=== PATIENT | female | born 1950 | race Caucasian/White ===

== ENCOUNTER 2018-04-24 08:59 | Emergency (ER) | payer MEDICARE, OTHER ==
[2018-04-24 10:40] LABS: ABS Basophils 0 10^3/ul (0-0.2); ABS Eosinophils 0 10^3/ul (0-0.6); ABS Lymphocytes 0.6 10^3/ul (1.0-4.8); ABS Monocytes 0.2 10^3/ul (0-0.8); ABS Neutrophils 5.1 10^3/ul (1.5-7.7); ABS Nucleated RBC 0 10^3/ul; Eosinophil % 0.1 % (0-6); Hematocrit 38 % (35-47); Hemoglobin 12.5 g/dl (12.0-16.0); Lymphocyte % 9.9 % (25-47); Mean Corpuscular HGB Conc 33 g/dl (31-36); Mean Corpuscular Hemoglobin 29 pg (27-31); Mean Corpuscular Volume 87 fL (80-97); Mean Platelet Volume 8.6 um3 (7.4-10.4); Nucleated Red Blood Cells % 0; Platelet Count 124 10^3/ul (150-450); Red Blood Count 4.35 10^6/ul (4.0-5.4); Red Cell Distribution Width 14 % (10.5-15)
[2018-04-24 10:48] LABS: INR 1.09 (0.77-1.02)
[2018-04-24 10:57] LABS: EGFR Non-African American 64.5 (>60)
--- NOTE | 2018-04-24 12:01 | RAD ---
INDICATION: Syncope COMPARISON: None. TECHNIQUE: Single AP portable view of the chest was obtained. FINDINGS: Image quality is compromised due to the relative inferiority of a portable chest x-ray. Surgical clips are seen overlying the left axilla and left chest. The heart and mediastinum exhibit normal size and contour. The lungs are grossly clear. There is no evidence of a large pleural effusion. Visualized bones are normal for the patient's age. IMPRESSION: No radiographic evidence for acute cardiopulmonary abnormality on this portable chest x-ray.
[2018-04-24] MEDS ORDERED: Iohexol 350* (CONTRAST) 500 ML MDV IV ONE (12:27)
[2018-04-24 12:29] LABS: Urine Appearance Cloudy; Urine Blood 1+ (Negative); Urine Color Yellow; Urine Ketones Negative (Negative); Urine Protein Negative (Negative); Urine Specific Gravity 1.005 (1.010-1.030); Urine Urobilinogen Negative (Negative)
--- NOTE | 2018-04-24 13:14 | RAD ---
INDICATION: Syncope in a woman with a history of left-sided breast cancer COMPARISON: Sonographic imaging from right lobe thyroid nodule FNA April 08, 2017 TECHNIQUE: Axial source images were acquired following the administration of 59 mL Omnipaque [address] angiographic technique. Coronal and sagittal reconstructed images were constructed and reviewed. FINDINGS: There there are no filling defects in the pulmonary arteries to indicate acute pulmonary embolic disease. There are no focal infiltrates or effusions. There are no pulmonary parenchymal masses. The heart is normal in size. There is no evidence of pericardial effusion. There is no evidence of aortic aneurysm or dissection. There is no mediastinal, hilar, or axillary lymphadenopathy. At the right lobe of the thyroid there is an ill-defined nodule measuring 1.7 x 2.5 cm. The visualized osseous structures appear normal. Limited views of the upper abdomen show no abnormalities. IMPRESSION: 1. No CT of evidence of pulmonary embolism. 2. Right lobe thyroid nodule that that appears slightly larger than the imaging from the biopsy dated April 08, 2017. This could be verified with nonemergent thyroid ultrasound if clinically warranted.
--- NOTE | 2018-04-24 14:46 | RAD ---
INDICATION: Pain and bruising at the right second toe after a fall COMPARISON: None. TECHNIQUE: 3 views of the right foot were obtained. FINDINGS: There is a nondisplaced fracture at the distal metaphysis of the right second toe proximal phalanx. Otherwise the adequately corticated bones are properly aligned. Joint spaces appear maintained. IMPRESSION: NONDISPLACED FRACTURE INVOLVING THE DISTAL METAPHYSIS OF THE RIGHT SECOND TOE PROXIMAL PHALANX.
[2018-04-24 15:31] VITALS: BP 98/70
--- NOTE | 2018-04-25 00:37 | ED ---
Angela Carbone Emily, scribed for Ruby Degroot MD on 04/24/18 at 0926 . Syncope/Near Syncope - HPI Summary HPI Summary: This patient is a 67 year old F BIBA to [facility] accompanied by with a chief complaint of syncopal episode that occurred just after 0800 today. Pt reports that she was getting out of the shower, became dizzy, and lost consciousness. Pt reports that she fell, and hit her head during the fall. The patient rates the pain 3/10 in severity. Symptoms aggravated by nothing. Symptoms alleviated by nothing. Patient reports diarrhea (beginning 3 days ago) and dizziness (resolved). Patient denies hematochezia, abd pain, neck pain, and headache. The patient denies having similar symptoms previously. - History Of Current Complaint Chief Complaint: EDSyncope Time Seen by Provider: 04/24/18 09:18 Hx Obtained From: Patient Onset/Duration: Sudden Onset, Lasting Minutes, Resolved Timing: Intermittent Episode Lasting - Minutes Context: Unwitnessed, Loss Of Consciousness Activity At Onset: Exertion Associated Head Trauma: Yes Aggravating Factor(s): Nothing Alleviating Factor(s): Nothing Associated Signs And Symptoms: Other - Positive diarrhea (beginning 3 days ago) and dizziness (resolved). Negative hematochezia, abd pain, neck pain and headache - Allergies/Home Medications Allergies/Adverse Reactions: Allergies Allergy/AdvReac Type Severity Reaction Status Date / Time No Known Allergies Allergy Verified 04/24/18 09:05 Home Medications: Home Medications Calcium Polycarbophil TAB* [Fibercon TAB*] 625 mg PO BID 04/24/18 [History Confirmed 04/24/18] Cholecalciferol TAB* [Vitamin D TAB*] 2,000 units PO DAILY 04/24/18 [History Confirmed 04/24/18] PMH/Surg Hx/FS Hx/Imm Hx Previously Healthy: No Cardiovascular History: Reports: Other Cardiovascular Problems/Disorders - Mitral valve prolapse Neurological History: Denies: Hx Seizures - Cancer History Cancer Type, Location and Year: Breast CA 2002 Hx Chemotherapy: Yes Hx Radiation Therapy: Yes - Surgical History Surgery Procedure, Year, and Place: Lumpectomy 2002 Hx Anesthesia Reactions: No Infectious Disease History: No Infectious Disease History: Denies: Traveled Outside the [place] in Last 30 Days - Family History Known Family History: Positive: Diabetes, Other - Pulmonary embolism - mother - Social History Occupation: Employed Full-time Lives: With Family Alcohol Use: None Hx Substance Use: No Substance Use Type: Reports: None Hx Tobacco Use: No Smoking Status (MU): Never Smoked Tobacco Review of Systems Positive: Diarrhea, Other - Negative hematochezia. Negative: Abdominal Pain Positive: Other - Negative neck pain Neurological: Other - Positive dizziness Positive: Syncope. Negative: Headache All Other Systems Reviewed And Are Negative: Yes Physical Exam - Summary Physical Exam Summary: Appearance: Well-appearing, moderate pain distress, well-nourished Skin: Warm, color reflects adequate perfusion, dry, 1 cm bruise on anterior surface of her right second toe. 3 cm bruise on right dorsal forearm in the proximal third of the forearm. Abrasion on right lower lip Head: Normal Head/Face inspection, atraumatic Eyes: Conjunctiva clear, PERRL, EOMI, no nystagmus ENT: dry oral mucosa Neck: Supple, no nodes, no JVD Respiratory: Lungs clear, normal breath sounds, no respiratory distress Cardio: RRR, No murmur, pulses normal, brisk capillary refill Abdomen: Soft, nontender Bowel sounds: Present Musculoskeletal: Strength Intact/ROM intact, no calf tenderness, no edema. Psychological: Normal Neuro: A&O x3, CN II-XII intact, motor function 5/5, sensation intact, cerebellar normal, GCS 15 Triage Information Reviewed: Yes Vital Signs On Initial Exam: Initial Vitals Temp Pulse Resp BP Pulse Ox 97.8 F 66 21 105/57 99 04/24/18 09:04 04/24/18 09:04 04/24/18 09:04 04/24/18 09:04 04/24/18 09:04 Vital Signs Reviewed: Yes - Lashaun Coma Scale Best Eye Response: 4 - Spontaneous Best Motor Response: 6 - Obeys Commands Best Verbal Response: 5 - Oriented Coma Scale Total: 15 Diagnostics - Vital Signs Vital Signs Temp Pulse Resp BP Pulse Ox 04/24/18 09:04 97.8 F 66 21 105/57 99 - Laboratory Lab Results: Lab Results 04/24/18 04/24/18 04/24/18 Range/Units 10:28 10:28 10:28 WBC 6.0 (3.5-10.8) 10^3/ul RBC 4.35 (4.0-5.4) 10^6/ul Hgb 12.5 (12.0-16.0) g/dl Hct 38 (35-47) % MCV 87 (80-97) fL MCH 29 (27-31) pg MCHC 33 (31-36) g/dl RDW 14 (10.5-15) % Plt Count 124 L (150-450) 10^3/ul MPV 8.6 (7.4-10.4) um3 Neut % (Auto) 85.6 H (38-83) % Lymph % (Auto) 9.9 L (25-47) % Jennings % (Auto) 4.1 (0-7) % Eos % (Auto) 0.1 (0-6) % Baso % (Auto) 0.3 (0-2) % Absolute Neuts (auto) 5.1 (1.5-7.7) 10^3/ul Absolute Lymphs (auto) 0.6 L (1.0-4.8) 10^3/ul Absolute Monos (auto) 0.2 (0-0.8) 10^3/ul Absolute Eos (auto) 0 (0-0.6) 10^3/ul Absolute Basos (auto) 0 (0-0.2) 10^3/ul Absolute Nucleated RBC 0 10^3/ul Nucleated RBC % 0 INR (Anticoag Therapy) (0.77-1.02) APTT (26.0-36.3) seconds D-Dimer, Quantitative (Less Than 230) ng/mL Sodium 139 (139-145) mmol/L Potassium 3.6 (3.5-5.0) mmol/L Chloride 108 (101-111) mmol/L Carbon Dioxide 25 (22-32) mmol/L Anion Gap 6 (2-11) mmol/L BUN 13 (6-24) mg/dL Creatinine 0.88 (0.51-0.95) mg/dL Est GFR ( Amer) 82.9 (>60) Est GFR (Non-Af Amer) 64.5 (>60) BUN/Creatinine Ratio 14.8 (8-20) Glucose 98 (70-100) mg/dL Lactic Acid 0.8 (0.5-2.0) mmol/L Calcium 8.3 L (8.6-10.3) mg/dL Magnesium 1.6 L (1.9-2.7) mg/dL Total Bilirubin 0.50 (0.2-1.0) mg/dL AST 20 (13-39) U/L ALT 17 (7-52) U/L Alkaline Phosphatase 55 (34-104) U/L Total Creatine Kinase 166 (10-223) U/L Troponin I 0.00 (<0.04) ng/mL B-Natriuretic Peptide ( - 100) pg/mL Total Protein 6.0 L (6.4-8.9) g/dL Albumin 3.4 (3.2-5.2) g/dL Globulin 2.6 (2-4) g/dL Albumin/Globulin Ratio 1.3 (1-3) TSH 0.27 L (0.34-5.60) mcIU/mL Urine Opiates Screen (None Detect) Ur Barbiturates Screen (None Detect) Ur Phencyclidine Scrn (None Detect) Ur Amphetamines Screen (None Detect) U Benzodiazepines Scrn (None Detect) Urine Cocaine Screen (None Detect) U Cannabinoids Screen (None Detect) Serum Alcohol < 10 (<10) mg/dL 04/24/18 04/24/18 04/24/18 Range/Units 10:28 10:28 11:49 WBC (3.5-10.8) 10^3/ul RBC (4.0-5.4) 10^6/ul Hgb (12.0-16.0) g/dl Hct (35-47) % MCV (80-97) fL MCH (27-31) pg MCHC (31-36) g/dl RDW (10.5-15) % Plt Count (150-450) 10^3/ul MPV (7.4-10.4) um3 Neut % (Auto) (38-83) % Lymph % (Auto) (25-47) % Jennings % (Auto) (0-7) % Eos % (Auto) (0-6) % Baso % (Auto) (0-2) % Absolute Neuts (auto) (1.5-7.7) 10^3/ul Absolute Lymphs (auto) (1.0-4.8) 10^3/ul Absolute Monos (auto) (0-0.8) 10^3/ul Absolute Eos (auto) (0-0.6) 10^3/ul Absolute Basos (auto) (0-0.2) 10^3/ul Absolute Nucleated RBC 10^3/ul Nucleated RBC % INR (Anticoag Therapy) 1.09 H (0.77-1.02) APTT 26.0 (26.0-36.3) seconds D-Dimer, Quantitative 415 H (Less Than 230) ng/mL Sodium (139-145) mmol/L Potassium (3.5-5.0) mmol/L Chloride (101-111) mmol/L Carbon Dioxide (22-32) mmol/L Anion Gap (2-11) mmol/L BUN (6-24) mg/dL Creatinine (0.51-0.95) mg/dL Est GFR ( Amer) (>60) Est GFR (Non-Af Amer) (>60) BUN/Creatinine Ratio (8-20) Glucose (70-100) mg/dL Lactic Acid (0.5-2.0) mmol/L Calcium (8.6-10.3) mg/dL Magnesium (1.9-2.7) mg/dL Total Bilirubin (0.2-1.0) mg/dL AST (13-39) U/L ALT (7-52) U/L Alkaline Phosphatase (34-104) U/L Total Creatine Kinase (10-223) U/L Troponin I (<0.04) ng/mL B-Natriuretic Peptide 66 ( - 100) pg/mL Total Protein (6.4-8.9) g/dL Albumin (3.2-5.2) g/dL Globulin (2-4) g/dL Albumin/Globulin Ratio (1-3) TSH (0.34-5.60) mcIU/mL Urine Opiates Screen None detected (None Detect) Ur Barbiturates Screen None detected (None Detect) Ur Phencyclidine Scrn None detected (None Detect) Ur Amphetamines Screen None detected (None Detect) U Benzodiazepines Scrn None detected (None Detect) Urine Cocaine Screen None detected (None Detect) U Cannabinoids Screen None detected (None Detect) Serum Alcohol (<10) mg/dL Result Diagrams: 04/24/18 10:28 04/24/18 10:28 Lab Statement: Any lab studies that have been ordered have been reviewed, and results considered in the medical decision making process. - Radiology CXR Radiology Interpretation Completed By: Radiologist - CXR reveals, per radiologist, no radiographic evidence for acute cardiopulmonary abnormality on this portable chest x-ray. ED physician has reviewed this radiology report. Foot XR Radiology Interpretation Completed By: Radiologist - Foot XR reveals, per radiologist, NONDISPLACED FRACTURE INVOLVING THE DISTAL METAPHYSIS OF THE RIGHT SECOND TOE PROXIMAL PHALANX. ED physician has reviewed this radiology report. - CT CTA Chest CT Interpretation Completed By: Radiologist - CTA chest reveals, per radiologist , 1. No CT of evidence of pulmonary embolism. 2. Right lobe thyroid nodule that that appears slightly larger than the imaging from the biopsy dated March. This could be verified with nonemergent thyroid ultrasound if clinically warranted. ED physician has reviewed this radiology report. - EKG 1031 Cardiac Rate: NL EKG Rhythm: Sinus Rhythm - 62 BPM EKG Interpretation: Nml AV IVCT. Nml QTc. Left axis - 18. No acute changes Re-Evaluation - Re-Evaluation First Eval Re-Evaluation Time: 12:25 Change: Unchanged Comment: elevated d dimer, pt with hx CA and fam hx PE with syncope, will order CTA chest Second Eval Re-Evaluation Time: 13:06 Change: Unchanged Comment: Discussed results and plan of care with the patient Third Eval Re-Evaluation Time: 14:33 Change: Improved Comment: Pt reports that her symptoms are much improved. The patient declines pain medication and crutches Course/Dx Course Of Treatment: This patient is a 67 year old F BIBA to [facility] accompanied by with a chief complaint of syncopal episode that occurred just after 0800 today. CXR reveals, per radiologist, no radiographic evidence for acute cardiopulmonary abnormality on this portable chest x-ray. CTA chest reveals, per radiologist, 1. No CT of evidence of pulmonary embolism. 2. Right lobe thyroid nodule that that appears slightly larger than the imaging from the biopsy dated April 08, 2017. This could be verified with nonemergent thyroid ultrasound if clinically warranted. Foot XR reveals, per radiologist, NONDISPLACED FRACTURE INVOLVING THE DISTAL METAPHYSIS OF THE RIGHT SECOND TOE PROXIMAL PHALANX. Bloodwork and UA obtained. The patient will be discharged home with follow up from PCP. The patient is agreeable with this plan. - Diagnoses Provider Diagnoses: Syncope, Right thyroid nodule, Elevated d-dimer, Fracture of second toe, right , closed Discharge - Sign-Out/Discharge Documenting (check all that apply): Discharge/Admit/Transfer - Discharge - Discharge Plan Condition: Stable Disposition: HOME Patient Education Materials: Toe Fracture (ED), Syncope (ED), Thyroid Nodules ( ED) Referrals: Jessica DIAZ,Jonah Diaz [Primary Care Provider] - 2 Days Jimy Porras MD [Medical Doctor] - 7 Days (orthopedist ) Additional Instructions: Dr. Degroot believes you passed out (had syncope) due to dehydration after your diarrhea. You had orthostatic hypotension and were rehydrated with IV fluids and are improved in the ER. You had a CTA based on risk factors for a pulmonary embolus, and it did not show a pulmonary embolus, but it did show the thyroid nodule that you are having biopsied. Your toe xray showed a nondisplaced fracture of your second toe. You may wear the boot that you used for your stress fracture. You may handy tape the toe for comfort. Return to the ER if you have new or worsening symptoms. The documentation as recorded by the Angela moore Emily accurately reflects the service I personally performed and the decisions made by , Ruby Degroot MD.
== END 2018-04-24 15:28 | disposition home or self-care (01) ==
LOC: ED 08:59
DX: R55 Syncope and collapse (principal); E04.1 Nontoxic single thyroid nodule; R79.1 Abnormal coagulation profile; S92.511A Displaced fracture of proximal phalanx of right lesser toe(s), initial encounter for closed fracture; W19.XXXA Unspecified fall, initial encounter; Y92.9 Unspecified place or not applicable; Z85.9 Personal history of malignant neoplasm, unspecified; Z83.2 Family history of diseases of the blood and blood-forming organs and certain disorders involving the immune mechanism
CPT/HCPCS: 36415; 71045; 71275; 80053; 80307; 80320; 81003; 81015; 82550; 83605; 83735; 83880; 84443; 84484; 85025; 85379; 85610; 85730; 87086; 93005; 99283; G0480; Q9967

== ENCOUNTER → 2019-05-05 05:41 | Day surgery (SDC) | payer MEDICARE, BC ==
[~2019-05-05 05:41] MED LIST: Atropine 1MG/ML INJ* 1 ML VIAL ONE; Buffered Lidocaine 1% SYRIN* 1 ML/SYRINGE INTRADERM ONE; Bupivacaine 0.5% W/EPI SDV* 30 ML VIAL ONE; Dexamethasone IV* 4 MG/ML 1 ML (4 MG) IV SLOW PU ONE; Dexamethasone IV* 4 MG/ML 1 ML (4 MG) ONE; DiMENhydriNATE IV* 50 MG/ML VIAL IV PUSH PRN; EPHEDrine (Pressors)* 50 MG/ML VIAL ONE; Famotidine IV* 10 MG/ML 2 ML (20 mg) IV ONE; Famotidine IV* 10 MG/ML 2 ML (20 mg) ONE; Glycopyrrolate IV* 0.2 MG/ML 1 ML VIAL ONE; HYDROcodone/ACETAMIN 5-325 MG* 1 TAB PO PRN; Ketorolac INJ* 30 MG/ML 1 ML VIAL ONE; Lactated Ringers 1000 ML Bag* 1,000 ML IV SCH; Lidocaine 2% PF * 5 ML VIAL ONE; Midazolam* 1 MG/ML 2 ML VIAL (2 MG) ONE; Naloxone* 0.4 MG/ML 1 ML VIAL IV PRN; Neostigmine Methylsulfate* 3 MG/3 ML SYRINGE ONE; Ondansetron INJ* 2 MG/ML VIAL ONE; Propofol* 10 MG/ML 20 ML BTL ONE; Rocuronium* 10 MG/ML VIAL ONE; Scopolamine 1.5 mg* PATCH ONE; Scopolamine 1.5 mg* PATCH TRANSDERM ONE; Scopolamine PATCH Remove* 1 NOTE MISC PATCH OFF ONE; ceFOXitin 2 GM IVPREMIX* 2 GM/50 ML BAG ONE; fentaNYL* 50 MCG/ML 2 ML VIAL (100 MCG VIAL) IV PRN; fentaNYL* 50 MCG/ML 2 ML VIAL (100 MCG VIAL) ONE; oxyCODONE TAB* 5 MG TAB PO PRN
[2019-05-05 06:55] LABS: ABS Basophils 0.1 10^3/ul (0-0.2); ABS Eosinophils 0.1 10^3/ul (0-0.6); ABS Lymphocytes 2.3 10^3/ul (1.0-4.8); ABS Monocytes 0.5 10^3/ul (0-0.8); ABS Neutrophils 2.2 10^3/ul (1.5-7.7); Eosinophil % 1.5 %; Hematocrit 39 % (35-47); Hemoglobin 13.2 g/dL (12.0-16.0); Lymphocyte % 44.9 %; Mean Corpuscular HGB Conc 34 g/dL (31-36); Mean Corpuscular Hemoglobin 30 pg (27-31); Mean Corpuscular Volume 88 fL (80-97); Mean Platelet Volume 9.1 fL (7.4-10.4); Nucleated Red Blood Cells % 0.1; Platelet Count 149 10^3/uL (150-450); Red Blood Count 4.48 10^6 /uL (3.70-4.87); Red Cell Distribution Width 15 % (10-15)
[2019-05-05 11:03] VITALS: BP 108/66
--- NOTE | 2019-05-05 21:52 | OP ---
DATE OF OPERATION: 05/05/19 - SDS DATE OF : 54 SURGEON: Elizabeth Morris MD DERMATOLOGY PHYSICIAN: Dr. Jelani Campbell. ANESTHESIOLOGIST: Dr. White. ANESTHESIA: General endotracheal with local at incisions. PRE-OP DIAGNOSIS: BRCA gene mutation carrier. POST-OP DIAGNOSIS: BRCA gene mutation carrier. OPERATIVE PROCEDURE: Laparoscopic bilateral salpingo-oophorectomy. ESTIMATED BLOOD LOSS: Minimal. URINE OUTPUT: 600 cc of clear yellow urine. FLUIDS: 1300 cc of crystalloid. FINDINGS: Revealed normal-appearing tubes and ovaries bilaterally, atrophic in appearance. Atrophic-appearing uterus with calcified fibroid subserosal. Normal-appearing bowel. Normal-appearing liver edge. No evidence of appendix upon inspection of the cecum, ileocecal junction. COMPLICATIONS: None apparent. DISPOSITION: Stable to recovery room. DESCRIPTION OF PROCEDURE: The patient was placed in dorsal lithotomy position. The abdomen and vagina were prepped and draped in a sterile standard fashion. The patient was identified with universal protocol. The Kelsey catheter was placed for drainage of clear yellow urine. Sterile speculum was inserted. Cervix was visualized. A Hulka clamp was placed. Speculum was removed. Attention was then focused on the abdominal portion of the procedure. A 0.5% bupivacaine with epi injection was given at the umbilicus for approximately 3 cc. An incision was made with scalpel. This was taken down to the fascia. The fascia was grasped with Nick, incised and the peritoneum was then entered bluntly. A 10 mm Armando port was placed. Confirming excellent placement into the peritoneum of the trocar, the pneumoperitoneum was then created. The right and left 5 mm ports were placed lateral and inferior to the umbilical port. 0.5 % bupivacaine with epi was applied 1 cc to each site. An incision was made with scalpel and a blunt 5 mm port was inserted under direct visualization both on the right and the left side. The right tube and ovary was approached first. Using a LigaSure, the mesosalpinx and IP ligament were cauterized and then cut for complete excision of the tube and ovary intact. This process was repeated on the left. A 5 mm scope was then inserted through the 5 mm port and an Endo Catch was placed through the 10 mm port. Both tubes and ovaries were placed in the Endo Catch bag. The bag was removed. Both specimens were noted to be intact and whole. The 10 mm Armando was replaced with trocar and through 5 mm scope, surgical sites from both right and left tubal and bilateral salpingo -oophorectomy sites were noted to be hemostatic. Attempt was then made to identify the appendix, which was not visualized as it was not in its typical location. The bowel was noted to have a normal appearance and there was a normal liver edge appreciated. The pneumo-peritoneum was then released. Trocar and trocar sheaths were removed under direct visualization and the fascia itself at the umbilicus was reapproximated using 0 Vicryl. The skin was then reapproximated using 4-0 Monocryl in a subcuticular fashion at all three port sites. Mastisol and Steri's were applied. Hulka clamp was removed. Kelsey catheter was removed. The patient was taken to recovery room in stable condition. [id number]/[facility] #: [id number] [facility]
== END | disposition home or self-care (01) ==
LOC: OR 05:41
PROVIDERS: ATTEND Obstetrics & Gynecology
DX: D25.9 Leiomyoma of uterus, unspecified (principal); Z15.09 Genetic susceptibility to other malignant neoplasm; Z85.3 Personal history of malignant neoplasm of breast
CPT/HCPCS: 36415; 85025; 86850; 86900; 86901; 88305; A9270-GY; J0461; J0694; J1100; J1885; J2250; J2405; J2704; J2710; J3010

== ENCOUNTER 2019-08-02 13:49 | Emergency (ER) | payer MEDICARE, BC ==
--- NOTE | 2019-08-02 16:19 | ED ---
Bite Injury/Animal - HPI Summary HPI Summary: Pt is a y/o who presents to the ER for a cat bite on her lower right leg that occurred on 07/29/19 while walking downstairs in her house. She was previously bitten by the same cat. The pt had the cat in the house for 16 years, but the cat was not vaccinated. Pt and her do not believe that the cat had rabies or that the cat had any changes in behavior, as the cat had always been somewhat aggressive. The cat did not have contact with other animals for the last 4 years. Pt also admits she had bats in her attic 3 years ago that have since been removed. The area of the bite appeared to have pus the next day, was warm to the touch, but had just been cleaned with hydrogen peroxide. Her last tetanus shot was given in 2015. Denies fever or chills. The cat is no longer alive. Pt has a PMHx of a low ejection fracture. Pt denies PMHx of DM, smoking, or alcohol use. She has FHx of of CA and DM. Medications reviewed. Allergies noted. - History of Current Complaint Chief Complaint: EDAnimalBite Stated Complaint: CAT BITE ON THURSDAY/POSS INFECTION PER PT Time Seen by Provider: 08/02/19 15:44 Hx Obtained From: Patient Onset of Injury: Happened days ago, Still Present Type of Bite: Pet Hx of Bite: Unprovoked Has Animal Been Immunized?: No Severity Initially: Moderate Severity Currently: Mild Pain Intensity: 0 Pain Scale Used: 0-10 Numeric Character: Puncture Aggravating Factor(s): Nothing Alleviating Factor(s): Nothing Associated Signs And Symptoms: Positive: Drainage - Pus Animal Available for Observation: No Animal Control Notified: No - Allergies/Home Medications Allergies/Adverse Reactions: Allergies Allergy/AdvReac Type Severity Reaction Status Date / Time No Known Allergies Allergy Verified 05/05/19 06:03 Home Medications: Home Medications Calcium Polycarbophil TAB* [Fibercon TAB*] 1,250 mg PO QAM 08/02/19 [History Confirmed 08/02/19] PMH/Surg Hx/FS Hx/Imm Hx Previously Healthy: Yes Endocrine/Hematology History: Denies: Hx Diabetes Cardiovascular History: Reports: Hx Valvular Heart Disease - mitral valve prolapse (40%) Denies: Hx Hypertension, Hx Pacemaker/ICD Comment Only: Other Cardiovascular Problems/Disorders - DR Whitmore WILL SEND CLEARENCE) Respiratory History: Denies: Hx Asthma Sensory History: Reports: Hx Contacts or Glasses - glasses Denies: Hx Hearing Aid Opthamlomology History: Reports: Hx Contacts or Glasses - glasses Neurological History: Denies: Hx Seizures Psychiatric History: Denies: Hx Panic Disorder - Cancer History Cancer Type, Location and Year: BREAST CA Hx Chemotherapy: Yes Hx Radiation Therapy: Yes - Surgical History Surgery Procedure, Year, and Place: 1998 right leg varicos vein stripping [facility]. 2001 left breast Lumpectomy sil. 05/05/19- PARTIAL HYSTERECTOMY( [facility])-OK [address] VISH Flanagan Anesthesia Reactions: No - Immunization History Date of Tetanus Vaccine: 08/2016 Immunizations Up to Date: Yes Infectious Disease History: No Infectious Disease History: Denies: Traveled Outside the [place] in Last 30 Days - Family History Known Family History: Positive: Diabetes, Other - Pulmonary embolism - mother - Social History Alcohol Use: Rare Alcohol Amount: 1-2 DRINKS EVERY FEW MONTHS Hx Substance Use: No Substance Use Type: Reports: None Hx Tobacco Use: No Smoking Status (MU): Never Smoked Tobacco Have You Smoked in the Last Year: No Review of Systems Negative: Fever, Chills Positive: Other - cat bite with purulence and warm to touch All Other Systems Reviewed And Are Negative: Yes Physical Exam - Summary Physical Exam Summary: Constitutional: Well-developed, Well-nourished, Alert. (-) Distressed Skin: Warm, Dry. Right lower leg has two areas of puncture with mild surrounding erythema, no induration. HENT: Normocephalic; Atraumatic Eyes: Conjunctiva normal Neck: Musculoskeletal ROM normal neck. (-) JVD, (-) Stridor, (-) Tracheal deviation Cardio: Rhythm regular, rate normal, Heart sounds normal; Intact distal pulses; The pedal pulses are 2+ and symmetric. Radial pulses are 2+ and symmetric. (-) Murmur Pulmonary/Chest wall: Effort normal. (-) Respiratory distress, (-) Wheezes, (-) Rales Abd: Soft, (-) tenderness, (-) Distension, (-) Guarding, (-) Rebound Musculoskeletal: (-) Edema Lymph: (-) Cervical adenopathy Neuro: Alert, Oriented x3 Psych: Mood and affect Normal Triage Information Reviewed: Yes Vital Signs On Initial Exam: Initial Vitals Temp Pulse Resp BP Pulse Ox 97.5 F 73 18 136/82 99 08/02/19 13:51 08/02/19 13:51 08/02/19 13:51 08/02/19 13:51 08/02/19 13:51 Vital Signs Reviewed: Yes Diagnostics - Vital Signs Vital Signs Temp Pulse Resp BP Pulse Ox 08/02/19 13:51 97.5 F 73 18 136/82 99 - Laboratory Lab Statement: Any lab studies that have been ordered have been reviewed, and results considered in the medical decision making process. Bite Injury Course/Dx - Course Course Of Treatment: Patient is here with a cat bite. Patient's cat was not vaccinated and was put down by the today after the incident. Patient received rabies vaccine and rabies Ig with follow-up with the health department. Patient was placed on antibiotic. - Diagnoses Provider Diagnosis: Cat bite Discharge ED - Sign-Out/Discharge Documenting (check all that apply): Patient Departure Patient Received Moderate/Deep Sedation with Procedure: No - Discharge Plan Condition: Stable Disposition: HOME Prescriptions: Amoxicillin/Clavulanate TAB* [Augmentin TAB 875*] 875 mg PO BID 7 Days #14 tab Patient Education Materials: Animal Bite (ED) Referrals: Jessica DIAZ,Jonah Diaz [Primary Care Provider] - Additional Instructions: Take antibiotics as prescribed. Follow-up with health department or [facility] walk-in clinic on days 3, 7, 14. Return to Emergency Department if there is drainage from the wound [place] [address] - Billing Disposition and Condition Condition: STABLE Disposition: Home - Attestation Statements Document Initiated by Scribe: Yes Documenting Scribe: Cecily Sanchez Provider For Whom Monica is Documenting (Include Credential): Steve Cordero MD. Scribe Attestation: Mercedes Carbone Kathryn O'Connor, scribed for Steve Cordero MD. on 08/03/19 at 2256. Scribe Documentation Reviewed: Yes Provider Attestation: The documentation as recorded by the scribe, Mercedes Amquy, Cecily O'Zane accurately reflects the service I personally performed and the decisions made by me, Steve Cordero MD. Status of Scribe Document: Viewed
[2019-08-02] MEDS ORDERED: Rabies VIRUS VACCINE (Imovax)* 2.5 UNIT/ML 1 ML IM ONE (16:53)
[2019-08-02] MEDS ORDERED: Rabies Immune Globulin/PF 1ML* 1 ML/300 UNITS VIAL IM ONE (16:53)
[2019-08-02 19:51] VITALS: BP 138/78
== END 2019-08-02 19:25 | disposition home or self-care (01) ==
LOC: ED 13:49
DX: S81.851A Open bite, right lower leg, initial encounter (principal); Z23 Encounter for immunization; W55.01XA Bitten by cat, initial encounter; Y92.009 Unspecified place in unspecified non-institutional (private) residence as the place of occurrence of the external cause; I34.1 Nonrheumatic mitral (valve) prolapse; Z90.711 Acquired absence of uterus with remaining cervical stump; Z79.899 Other long term (current) drug therapy
CPT/HCPCS: 90375; 90471; 99282